=== PATIENT | male | born 1955 | race Hispanic/Latino ===

== ENCOUNTER 2017-12-02 07:36 | Day surgery (SDC) | payer MEDICAID ==
[2017-11-24 11:43] VITALS: BMI 29.1
[2017-12-02 08:24] VITALS: RESP 14
[2017-12-02 08:33] LABS: BASO # 0.02 K/mm3 (0.0-2.0); BASO % 0.4 % (0.0-3.0); EOS # 0.4 (0.0-0.7); EOS % 7.1 % (1.5-5.0); GRAN # 2.42 (1.4-6.5); GRAN % 42.9 % (50.0-68.0); HEMOGLOBIN 14.5 g/dL (14.0-18.0); LYMPH # 2.4 (1.2-3.4); LYMPH % 42.1 % (22.0-35.0); MEAN CELL VOLUME 84.9 fl (80.0-105.0); MEAN CORPUSCULAR HEMOGLOBIN 28.4 pg (25.0-35.0); MEAN CORPUSCULAR HGB CONC 33.4 g/dl (31.0-37.0); MEAN PLATELET VOLUME 10.3 fl (7.0-11.0); MONO # 0.4 (0.1-0.6); MONO % 7.5 % (1.0-6.0); RBC 5.11 10^6/uL (3.5-6.1); RED CELL DISTRIBUTION WIDTH 14.5 % (11.5-14.5); WHITE BLOOD COUNT 5.6 10^3/ul (4.5-11.0)
[2017-12-02 08:46] LABS: INR 1.07 (0.93-1.08); PARTIAL THROMBOPLASTIN TIME 36.1 Seconds (25.1-36.5); PROTHROMBIN TIME 12.3 SECONDS (9.4-12.5)
[2017-12-02 08:50] LABS: ALB/GLOB RATIO 1.1 (1.1-1.8); ALT/SGPT 51 U/L (7-56); AST/SGOT 41 U/L (17-59); BLOOD UREA NITROGEN 17 mg/dL (7-21); CALCIUM 9.8 mg/dL (8.4-10.5); GFR AFRICAN-AMERICAN > 60; GFR NON-AFRICAN AMERICAN > 60
[2017-12-02] MEDS ORDERED: Propofol 10 mg/ml Inj (20 ML) ONE (09:41)
[2017-12-02] MEDS ORDERED: Midazolam 2 MG/2 ML VIAL ONE (09:41)
[2017-12-02] MEDS ORDERED: Lidocaine 2% Inj (20ml) ONE (09:48)
[2017-12-02] MEDS ORDERED: Sodium Chloride 0.9% 1,000 ML IV SCH (10:30)
[2017-12-02 11:13] VITALS: O2SAT 95
[2017-12-02 11:53] VITALS: BP 122/68; PULSE 70; TEMP 98.4
== END 2017-12-02 12:07 | disposition home or self-care (01) ==
LOC: ENDO 07:36
PROVIDERS: ATTEND Internal Medicine
DX: K31.9 Disease of stomach and duodenum, unspecified (principal); K29.50 Unspecified chronic gastritis without bleeding; R14.0 Abdominal distension (gaseous); E78.00 Pure hypercholesterolemia, unspecified; Z90.49 Acquired absence of other specified parts of digestive tract
CPT/HCPCS: 36415; 43242; 80053; 85025; 85610; 85730; 88305; 88342; J2250; J2405; J2704; J3010; J7040 ×2

== ENCOUNTER 2018-02-19 05:27 | Emergency (ER) | payer MEDICAID ==
[2018-02-19 05:28] VITALS: BMI 29.1
[2018-02-19] MEDS ORDERED: Sodium Chloride 0.9% 500 ML IV STA (06:00)
--- NOTE | 2018-02-19 06:09 | ED PDOC ---
Arrival/HPI - General Chief Complaint: Abdominal Pain Time Seen by Provider: 02/19/18 06:00 Historian: Patient - History of Present Illness Narrative History of Present Illness (Text): 02/19/18 06:09 Celina Velazco is a 62 year old male who presents to the Emergency department complaining of abdominal pain. Patient states he has been experiencing LLQ pain radiating to his groin since yesterday evening. Patient reports associated urinary urgency. Patient denies any fever, chills, chest pain, shortness of breath, nausea, vomiting, diarrhea, back pain, neck pain, headache, dizziness, or any other complaints. Symptom Onset: Gradual Symptom Course: Unchanged Activities at Onset: Light Context: Home Past Medical History - Provider Review Nursing Documentation Reviewed: Yes - Infectious Disease Hx of Infectious Diseases: None - Tetanus Immunization Tetanus Immunization: Unknown - Past Medical History Past Medical History: No Previous - Cardiac Hx Pacemaker: No - Hematological/Oncological Hx Blood Transfusions: No - Musculoskeletal/Rheumatological Hx Musculoskeletal Disorders: No - Psychiatric Hx Emotional Abuse: No Hx Physical Abuse: No Hx Substance Use: No - Surgical History Hx Orthopedic Surgery: Yes (wrist) - Anesthesia Hx Anesthesia Reactions: No Hx Malignant Hyperthermia: No - Suicidal Assessment Feels Threatened In Home Enviroment: No Family/Social History - Physician Review Nursing Documentation Reviewed: Yes Family/Social History: Unknown Family HX Smoking Status: Never Smoked Hx Alcohol Use: No Hx Substance Use: No Hx Substance Use Treatment: No Allergies/Home Meds Allergies/Adverse Reactions: Allergies No Known Allergies Allergy (Verified 02/19/18 05:46) Review of Systems - Physician Review All systems were reviewed & negative as marked: Yes - Review of Systems Constitutional: Normal. absent: Fevers Eyes: Normal ENT: Normal Respiratory: Normal. absent: SOB, Cough Cardiovascular: Normal. absent: Chest Pain Gastrointestinal: Abdominal Pain. absent: Vomiting Genitourinary Male: Other (+urinary urgency). absent: Dysuria Musculoskeletal: Normal. absent: Back Pain, Neck Pain Skin: Normal. absent: Rash Neurological: Normal. absent: Headache, Dizziness Endocrine: Normal Hemo/Lymphatic: Normal Psychiatric: Normal Physical Exam Vital Signs Reviewed: Yes Vital Signs Temp Pulse Resp BP Pulse Ox 02/19/18 07:07 97.4 F L 97 H 18 114/72 96 02/19/18 07:04 97 H 18 114/72 96 02/19/18 05:43 97.7 F 92 H 20 144/91 H 93 L Temperature: Afebrile Blood Pressure: Normal Pulse: Regular Respiratory Rate: Normal Appearance: Positive for: Well-Appearing, Non-Toxic, Comfortable Pain Distress: None Mental Status: Positive for: Alert and Oriented X 3 - Systems Exam Head: Present: Atraumatic, Normocephalic Pupils: Present: PERRL Extroacular Muscles: Present: EOMI Conjunctiva: Present: Normal Mouth: Present: Moist Mucous Membranes Neck: Present: Normal Range of Motion Respiratory/Chest: Present: Clear to Auscultation, Good Air Exchange. No: Respiratory Distress, Accessory Muscle Use Cardiovascular: Present: Regular Rate and Rhythm, Normal S1, S2. No: Murmurs Abdomen: No: Tenderness, Distention, Peritoneal Signs Back: Present: Normal Inspection Upper Extremity: Present: Normal Inspection. No: Cyanosis, Edema Lower Extremity: Present: Normal Inspection. No: Edema Neurological: Present: GCS=15, CN II-XII Intact, Speech Normal Skin: Present: Warm, Dry, Normal Color. No: Rashes Psychiatric: Present: Alert, Oriented x 3, Normal Insight, Normal Concentration Medical Decision Making ED Course and Treatment: 02/19/18 06:09 Impression: 62 year old male complaining of LLQ pain radiating to groin since yesterday evening. Plan: -- CT Abdomen and Pelvis w/o contrast -- Labs -- Urinalysis -- IV fluids -- Toradol -- Zofran -- Reassess and disposition Progress Notes: 02/19/18 07:[address] Busch, pending CT scan, labs, re-evaluation, and disposition. - Lab Interpretations Microbiology Results: Microbiology Results 02/19/18 10:30 Urine,Clean Catch Urine Culture - Final No Growth (<1,000 CFU/ML) Lab Results: 02/19/18 06:30 02/19/18 06:30 Lab Results 02/19/18 09:12: Urine Color Yellow, Urine Appearance Clear, Urine pH 6.0, Ur Specific [place] 1.010, Urine Protein Negative, Urine Glucose (UA) Negative, Urine Ketones Negative, Urine Blood Large H, Urine Nitrate Negative, Urine Bilirubin Negative, Urine Urobilinogen 0.2, Ur Leukocyte Esterase Small H, Urine RBC Tntc, Urine WBC 1 - 3, Urine Bacteria Few 02/19/18 06:30: Sodium 143, Potassium 4.2, Chloride 103, Carbon Dioxide 27, Anion Gap 18, BUN 20, Creatinine 1.1, Est GFR ( Amer) > 60, Est GFR (Non- Af Amer) > 60, Random Glucose 135 H, Calcium 9.6, Total Bilirubin 0.6, AST 29, ALT 28, Alkaline Phosphatase 91, Total Protein 7.4, Albumin 3.9, Globulin 3.5, Albumin/Globulin Ratio 1.1 02/19/18 06:30: WBC 10.1 D, RBC 5.04, Hgb 13.7 L, Hct 41.8 L, MCV 82.9, MCH 27.2, MCHC 32.8, RDW 14.5, Plt Count 284, MPV 10.2, Gran % 84.0 H, Lymph % (Auto ) 11.2 L, [place] % (Auto) 3.4, Eos % (Auto) 1.3 L, Baso % (Auto) 0.1, Gran # 8.48 H, Lymph # (Auto) 1.1 L, [place] # (Auto) 0.3, Eos # (Auto) 0.1, Baso # (Auto) 0.01 - RAD Interpretation Radiology Orders: 02/19/18 06:00 ABD & PELVIS W/O PO OR IV CONT [CT] Stat - Medication Orders Current Medication Orders: Discontinued Medications Sodium Chloride (Sodium Chloride 0.9%) 500 mls @ 1,000 mls/hr IV .Q30M STA Stop: 02/19/18 06:29 Last Admin: 02/19/18 06:34 Dose: 1,000 mls/hr eMAR Start Stop Document 02/19/18 06:34 (Rec: 02/19/18 06:39 [id number]) Intravenous Solution Start Date 02/19/18 Start Time 06:34 Ketorolac Tromethamine (Toradol) 15 mg IVP STAT STA Stop: 02/19/18 06:01 Last Admin: 02/19/18 06:34 Dose: 15 mg MAR Pain Assessment Document 02/19/18 06:34 (Rec: 02/19/18 06:39 [id number]) Pain Reassessment Is this a pain reassessment? Yes Sleep Is patient sleeping during reassessment? Yes Location Left, Right or Bilateral Left Upper or Lower Lower Pain Location Body Site Abdomen Description Description Sharp Intensity of Pain at present 4 Pain Behavior Rubbing Site IVP Administration Document 02/19/18 06:34 RG (Rec: 02/19/18 06:39 RG [id number]) Charges for Administration # of IVP Administrations 1 Re-Assess: MAR Pain Assessment Document 02/19/18 07:34 HP (Rec: 02/19/18 08:29 HP [id number]) Pain Reassessment Is this a pain reassessment? Yes Ondansetron HCl (Zofran Inj) 4 mg IVP STAT STA Stop: 02/19/18 06:01 Last Admin: 02/19/18 06:33 Dose: 4 mg IVP Administration Document 02/19/18 06:33 RG (Rec: 02/19/18 06:38 [id number] Charges for Administration # of IVP Administrations 1 Oxycodone/Acetaminophen (Percocet 5/325 Mg Tab) 1 tab PO STAT STA Stop: 02/19/18 07:57 Last Admin: 02/19/18 08:32 Dose: 1 tab MAR Pain Assessment Document 02/19/18 08:32 HP (Rec: 02/19/18 08:32 HP [id number]) Pain Reassessment Is this a pain reassessment? No - Scribe Statement The provider has reviewed the documentation as recorded by the Scribe Kendra Cardona All medical record entries made by the Scribe were at my direction and personally dictated by me. I have reviewed the chart and agree that the record accurately reflects my personal performance of the history, physical exam, medical decision making, and the department course for this patient. I have also personally directed, reviewed, and agree with the discharge instructions and disposition. Disposition/Present on Arrival - Present on Arrival Any Indicators Present on Arrival: No History of DVT/PE: No History of Uncontrolled Diabetes: No Urinary Catheter: No History of Decub. Ulcer: No History Surgical Site Infection Following: None - Disposition Have Diagnosis and Disposition been Completed?: Yes Diagnosis: Ureteral colic Disposition: HOME/ ROUTINE Disposition Time: 07:00 Condition: STABLE Discharge Instructions (ExitCare): Renal Colic Print Language: SINHALA Additional Instructions: Make sure to see your doctor in 1-2 days DRINK PLENTY OF FLUIDS take your medications as prescribed RETURN TO ED IF worse pain, cant breath, persistent vomiting, high fever >101- 102 for hours, altered behavior, slurr speech, facial changes, focal weakness ( arm/leg or both), unable to urinate, heavy/persistent bleeding, passing out, chest pain, or other medical emergencies Prescriptions: Ibuprofen [Motrin] 600 mg PO QID PRN #30 tab PRN Reason: Pain, Mild (1-3) oxyCODONE/Acetaminophen [Percocet 5/325 mg Tab] 1 tab PO QID PRN #12 tab PRN Reason: Pain, Moderate (4-7) Ondansetron ODT [Zofran ODT] 4 mg PO TID PRN #12 odt PRN Reason: Nausea/Vomiting Referrals: Sharri Tate MD [Family Provider] - Follow up with primary Marciano Roper MD [Staff Provider] - Follow up with primary Forms: [employer] (Sinhala)
[2018-02-19 06:59] LABS: BASO # 0.01 K/mm3 (0.0-2.0); BASO % 0.1 % (0.0-3.0); EOS # 0.1 (0.0-0.7); EOS % 1.3 % (1.5-5.0); GRAN # 8.48 (1.4-6.5); HEMOGLOBIN 13.7 g/dL (14.0-18.0); LYMPH # 1.1 (1.2-3.4); LYMPH % 11.2 % (22.0-35.0); MEAN CELL VOLUME 82.9 fl (80.0-105.0); MEAN CORPUSCULAR HEMOGLOBIN 27.2 pg (25.0-35.0); MEAN CORPUSCULAR HGB CONC 32.8 g/dl (31.0-37.0); MEAN PLATELET VOLUME 10.2 fl (7.0-11.0); MONO # 0.3 (0.1-0.6); MONO % 3.4 % (1.0-6.0); RBC 5.04 10^6/uL (3.5-6.1); RED CELL DISTRIBUTION WIDTH 14.5 % (11.5-14.5); WHITE BLOOD COUNT 10.1 10^3/ul (4.5-11.0)
[2018-02-19 07:05] VITALS: BP 114/72; PULSE 97; RESP 18; O2SAT 96
[2018-02-19 07:08] VITALS: TEMP 97.4
[2018-02-19 07:15] LABS: ALB/GLOB RATIO 1.1 (1.1-1.8); ALBUMIN 3.9 g/dL (3.0-4.8); ALT/SGPT 28 U/L (7-56); AST/SGOT 29 U/L (17-59); BLOOD UREA NITROGEN 20 mg/dL (7-21); CALCIUM 9.6 mg/dL (8.4-10.5); GFR AFRICAN-AMERICAN > 60; GFR NON-AFRICAN AMERICAN > 60
--- NOTE | 2018-02-19 07:16 | CT ---
EXAM: CT Abdomen and Pelvis Without Intravenous Contrast CLINICAL HISTORY: 62 years old, male; Pain; Abdominal pain; Localized; Left lower quadrant (llq); Additional info: Llq pain TECHNIQUE: Axial computed tomography images of the abdomen and pelvis without intravenous contrast. All CT scans at this facility use one or more dose reduction techniques, viz.: automated exposure control; ma/kV adjustment per patient size (including targeted exams where dose is matched to indication; i.e. head); or iterative reconstruction technique. Coronal and sagittal reformatted images were created and reviewed. COMPARISON: CT - LIVER PROTOCOL TRIPLE PHASE 2017-10-31 09:11 FINDINGS: Lung bases: Hyperinflation of lung bases. Mild atelectasis/scarring. ABDOMEN: Liver: Unremarkable. Gallbladder and bile ducts: No calcified stones. No ductal dilation. Pancreas: Unremarkable. No ductal dilation. Spleen: No splenomegaly. Adrenals: No mass. Kidneys and ureters: Too small to characterize lesion within LEFT kidney. No renal calculi. Mild pelvocaliectasis of LEFT kidney. Mildly dilated LEFT ureter. Stomach and bowel: Few scattered diverticula within colon. No associated inflammatory stranding. Segmental areas of probable underdistention of colon. No definite mural thickening. No obstruction. PELVIS: Appendix: No findings to suggest acute appendicitis. Bladder: 0.1 x 0.1 x 0.1 cm calcification along posterior bladder wall. Reproductive: Mildly enlarged prostate. ABDOMEN and PELVIS: Intraperitoneal space: No significant fluid collection. No free air. Bones/joints: Degenerative changes of spine. Syndesmophytes throughout spine. Fusion of sacroiliac joints. No acute fracture. Soft tissues: Small umbilical hernia containing fat. Tiny LEFT inguinal hernia containing fat. Vasculature: Mild atherosclerotic disease. No aneurysm. Lymph nodes: No pathologically enlarged lymph nodes. IMPRESSION: 1. Bladder calcification, likely recently passed left ureteral calculus. 2. Findings compatible with seronegative arthropathy. 3. Prostate enlargement. Followup as clinically warranted. 4. Incidental/non-acute findings are described above.
--- NOTE | 2018-02-19 07:17 | ED PDOC ---
Physical Exam Vital Signs Temp Pulse Resp BP Pulse Ox 02/19/18 07:07 97.4 F L 97 H 18 114/72 96 02/19/18 07:04 97 H 18 114/72 96 02/19/18 05:43 97.7 F 92 H 20 144/91 H 93 L Temperature: Afebrile Blood Pressure: Hypertensive Pulse: Regular Respiratory Rate: Normal Appearance: Positive for: Well-Appearing, Non-Toxic, Uncomfortable, Other ( resting in bed, mildly uncomfortable, cooperative, alert/awake, GCS = 15, oriented x 3, alert/awake) Pain Distress: None Mental Status: Positive for: Alert and Oriented X 3 - Systems Exam Head: Present: Atraumatic, Normocephalic Pupils: Present: PERRL, Other (no nystagmus, no photophobia, sclera anicteric, visual field intact b/l) Extroacular Muscles: Present: EOMI Conjunctiva: Present: Normal Ears: Present: Normal Mouth: Present: Normal Teeth, Other Pharnyx: Present: Normal Nose (External): Present: Atraumatic Nose (Internal): Present: Normal Inspection Neck: Present: Normal Range of Motion, Trachea Midline. No: Meningeal Signs, MIDLINE TENDERNESS Respiratory/Chest: Present: Clear to Auscultation, Good Air Exchange. No: Respiratory Distress, Accessory Muscle Use Cardiovascular: Present: Regular Rate and Rhythm, Normal S1, S2 Abdomen: Present: Normal Bowel Sounds, Other (left flank pain, well nourished male, no focal tenderness, no romo's sign, no mcburney's point tenderness, no masses/rebound/guarding/rigidity) Back: Present: Normal Inspection, CVA Tenderness (left CVAT), Other (no midline tenderness). No: Midline Tenderness Upper Extremity: Present: Normal Inspection, Normal ROM, NORMAL PULSES, Neurovascularly Intact Lower Extremity: Present: Normal Inspection, NORMAL PULSES, Normal ROM, Neurovascularly Intact Neurological: Present: GCS=15, CN II-XII Intact, Speech Normal Skin: Present: Warm, Normal Color, Other (cap refill ~ 1sec, no ulcerations, no petechiae) Psychiatric: Present: Alert, Oriented x 3 Medical Decision Making ED Course and Treatment: 02/19/18 07:15 pt was endorsed to me by Dr Tristan, awaiting CT and lab results; re-eval; pt can be dispositioned accordingly 02/19/18 08:04 pt is feeling improved, pt states pain is nearly 0/10 awaiting U/A results 02/19/18 09:59 pt remained comfortable, states his pain is now 2-3/10 pt tolerated po pt is made aware of his medical results pt is encouraged fluids pt will f/u as directed pt will be discharged home Re-evaluation Time: 08:04 Reassessment Condition: Improved - Lab Interpretations Lab Results: 02/19/18 06:30 02/19/18 06:30 Lab Results 02/19/18 09:12: Urine Color Yellow, Urine Appearance Clear, Urine pH 6.0, Ur Specific [place] 1.010, Urine Protein Negative, Urine Glucose (UA) Negative, Urine Ketones Negative, Urine Blood Large H, Urine Nitrate Negative, Urine Bilirubin Negative, Urine Urobilinogen 0.2, Ur Leukocyte Esterase Small H, Urine RBC Tntc, Urine WBC 1 - 3, Urine Bacteria Few 02/19/18 06:30: Sodium 143, Potassium 4.2, Chloride 103, Carbon Dioxide 27, Anion Gap 18, BUN 20, Creatinine 1.1, Est GFR ( Amer) > 60, Est GFR (Non- Af Amer) > 60, Random Glucose 135 H, Calcium 9.6, Total Bilirubin 0.6, AST 29, ALT 28, Alkaline Phosphatase 91, Total Protein 7.4, Albumin 3.9, Globulin 3.5, Albumin/Globulin Ratio 1.1 02/19/18 06:30: WBC 10.1 D, RBC 5.04, Hgb 13.7 L, Hct 41.8 L, MCV 82.9, MCH 27.2, MCHC 32.8, RDW 14.5, Plt Count 284, MPV 10.2, Gran % 84.0 H, Lymph % (Auto ) 11.2 L, [place] % (Auto) 3.4, Eos % (Auto) 1.3 L, Baso % (Auto) 0.1, Gran # 8.48 H, Lymph # (Auto) 1.1 L, [place] # (Auto) 0.3, Eos # (Auto) 0.1, Baso # (Auto) 0.01 I have reviewed the lab results: Yes Interpretation: Abnormal lab values (+ blood in Urine) - RAD Interpretation Narrative RAD Interpretations (Text): CT Abdomen and Pelvis Without Intravenous Contrast FINDINGS: Lung bases: Hyperinflation of lung bases. Mild atelectasis/scarring. ABDOMEN: Liver: Unremarkable. Gallbladder and bile ducts: No calcified stones. No ductal dilation. Pancreas: Unremarkable. No ductal dilation. Spleen: No splenomegaly. Adrenals: No mass. Kidneys and ureters: Too small to characterize lesion within LEFT kidney. No renal calculi. Mild pelvocaliectasis of LEFT kidney. Mildly dilated LEFT ureter. Stomach and bowel: Few scattered diverticula within colon. No associated inflammatory stranding. Segmental areas of probable underdistention of colon. No definite mural thickening. No obstruction. PELVIS: Appendix: No findings to suggest acute appendicitis. Bladder: 0.1 x 0.1 x 0.1 cm calcification along posterior bladder wall. Reproductive: Mildly enlarged prostate. ABDOMEN and PELVIS: Intraperitoneal space: No significant fluid collection. No free air. Bones/joints: Degenerative changes of spine. Syndesmophytes throughout spine. Fusion of sacroiliac joints. No acute fracture. Soft tissues: Small umbilical hernia containing fat. Tiny LEFT inguinal hernia containing fat. Vasculature: Mild atherosclerotic disease. No aneurysm. Lymph nodes: No pathologically enlarged lymph nodes. IMPRESSION: 1. Bladder calcification, likely recently passed left ureteral calculus. 2. Findings compatible with seronegative arthropathy. 3. Prostate enlargement. Followup as clinically warranted. 4. Incidental/non-acute findings are described above. Dictated and Authenticated by: Dheeraj Servin MD 02/19/2018 7:16 AM Eastern Time ([place] & [place]) Radiology Orders: 02/19/18 06:00 ABD & PELVIS W/O PO OR IV CONT [CT] Stat Onion Tier: Radiologist - Medication Orders Current Medication Orders: Discontinued Medications Sodium Chloride (Sodium Chloride 0.9%) 500 mls @ 1,000 mls/hr IV .Q30M STA Stop: 02/19/18 06:29 Last Admin: 02/19/18 06:34 Dose: 1,000 mls/hr eMAR Start Stop Document 02/19/18 06:34 JHON (Rec: 02/19/18 06:39 RG [id number]) Intravenous Solution Start Date 02/19/18 Start Time 06:34 Ketorolac Tromethamine (Toradol) 15 mg IVP STAT STA Stop: 02/19/18 06:01 Last Admin: 02/19/18 06:34 Dose: 15 mg MAR Pain Assessment Document 02/19/18 06:34 RG (Rec: 02/19/18 06:39 [id number] Pain Reassessment Is this a pain reassessment? Yes Sleep Is patient sleeping during reassessment? Yes Location Left, Right or Bilateral Left Upper or Lower Lower Pain Location Body Site Abdomen Description Description Sharp Intensity of Pain at present 4 Pain Behavior Rubbing Site IVP Administration Document 02/19/18 06:34 RG (Rec: 02/19/18 06:39 RG [id number]) Charges for Administration # of IVP Administrations 1 Re-Assess: MAR Pain Assessment Document 02/19/18 07:34 HP (Rec: 02/19/18 08:29 HP [id number]) Pain Reassessment Is this a pain reassessment? Yes Ondansetron HCl (Zofran Inj) 4 mg IVP STAT STA Stop: 02/19/18 06:01 Last Admin: 02/19/18 06:33 Dose: 4 mg IVP Administration Document 02/19/18 06:33 RG (Rec: 02/19/18 06:38 [id number]) Charges for Administration # of IVP Administrations 1 Oxycodone/Acetaminophen (Percocet 5/325 Mg Tab) 1 tab PO STAT STA Stop: 02/19/18 07:57 Last Admin: 02/19/18 08:32 Dose: 1 tab MAR Pain Assessment Document 02/19/18 08:32 HP (Rec: 02/19/18 08:32 HP [id number]) Pain Reassessment Is this a pain reassessment? No - Scribe Statement The provider has reviewed the documentation as recorded by the Matthew Dominguez Provider Scribe Attestation: All medical record entries made by the Scribnicolas were at my direction and personally dictated by me. I have reviewed the chart and agree that the record accurately reflects my personal performance of the history, physical exam, medical decision making, and the department course for this patient. I have also personally directed, reviewed, and agree with the discharge instructions and disposition. Disposition/Present on Arrival - Present on Arrival Any Indicators Present on Arrival: No History of DVT/PE: No History of Uncontrolled Diabetes: No Urinary Catheter: No History of Decub. Ulcer: No History Surgical Site Infection Following: None - Disposition Have Diagnosis and Disposition been Completed?: Yes Diagnosis: Ureteral colic Disposition: HOME/ ROUTINE Disposition Time: 09:56 Patient Plan: Discharge Patient Problems: Current Active Problems Problem Status Onset Ureteral colic Acute Condition: STABLE Discharge Instructions (ExitCare): Renal Colic Print Language: [id number] Additional Instructions: Make sure to see your doctor in 1-2 days DRINK PLENTY OF FLUIDS take your medications as prescribed RETURN TO ED IF worse pain, cant breath, persistent vomiting, high fever >101- 102 for hours, altered behavior, slurr speech, facial changes, focal weakness ( arm/leg or both), unable to urinate, heavy/persistent bleeding, passing out, chest pain, or other medical emergencies Prescriptions: Ibuprofen [Motrin] 600 mg PO QID PRN #30 tab PRN Reason: Pain, Mild (1-3) Ondansetron ODT [Zofran ODT] 4 mg PO TID PRN #12 odt PRN Reason: Nausea/Vomiting oxyCODONE/Acetaminophen [Percocet 5/325 mg Tab] 1 tab PO QID PRN #12 tab PRN Reason: Pain, Moderate (4-7) Referrals: Sharri Tate MD [Family Provider] - Follow up with primary Marciano Roper MD [Staff Provider] - Follow up with primary Forms: [employer] (Burkinan)
[2018-02-19] MEDS ORDERED: Oxycodone/Acetaminophen 5/325 mg Tab PO STA (07:56)
[2018-02-19 09:26] LABS: URINE BILIRUBIN NEGATIVE (NEGATIVE); URINE BLOOD LARGE (NEGATIVE); URINE GLUCOSE (UA) NEGATIVE (NEGATIVE); URINE LEUKOCYTE ESTERASE SMALL Leu/uL (NEGATIVE); URINE PROTEIN NEGATIVE mg/dL (<30 mg/dL); URINE UROBILINOGEN 0.2 E.U./dL (<1 E.U./dL)
[2018-02-19 09:27] LABS: URINE APPEARANCE CLEAR (CLEAR); URINE COLOR YELLOW (YELLOW)
[2018-02-19 09:37] LABS: URINE BACTERIA FEW (NEG); URINE RBC TNTC /hpf (0-2)
== END 2018-02-19 10:09 | disposition home or self-care (01) ==
LOC: ED 05:27
DX: N23 Unspecified renal colic (principal)
CPT/HCPCS: 74176; 80053; 81001; 85025; 87086; 96374; 96375; 99285; J1885; J2405; J7040